=== PATIENT | female | born 1985 | race African-American/Black ===

== ENCOUNTER 2020-09-11 21:40 | Emergency (ER) | payer MEDICAID ==
[~2020-09-11] VITALS: Ht 160 cm; Wt 54.4 kg
--- NOTE | 2020-09-11 22:05 | NUR ---
ED Nurse Note: Recieved pt walk in from home with c/o posterior neck pain at 9/10 since am, pt awakened with pain, possibly slept wrong, denies any injury or fall or other complaints, pt is ambulatory but states can not move neck, pt is guarding site.
[2020-09-11] MEDS ORDERED: IBUPROFEN600 M1 ORAL (22:22)
[2020-09-11] MEDS ORDERED: VALIUM5 MG ORAL (22:22)
--- NOTE | 2020-09-11 22:22 | Emergency Room Report ---
History of Present Illness General Chief Complaint: Neck Pain Source: Patient Present Illness HPI Is a 35-year-old female with no past medical history she presents with complaint of neck pain. Patient states she woke up 1 day and felt stiffness in her neck. Since then she is unable to turn her neck. Worse to the left side. Similar symptom in the past but never like this before. Pain been ongoing for the last 2 to 3 days. Pain is 8 out of 10. No trauma. No fever chills. Not on any medication. No focal deficit. Allergies: Uncoded Allergies: DAIRY (Allergy, Unknown, 09/11/20) COVID-19 Screening Contact w/high risk pt: No Experienced COVID-19 symptoms?: No COVID-19 Testing performed [employer]: No Patient History Past Medical History: see triage record, old chart reviewed Past Surgical History: none Pertinent Family History: none Social History: Denies: smoking Last Menstrual Period: current Now: No Immunizations: other Reviewed Nursing Documentation: PMH: Agreed; PSxH: Agreed Nursing Documentation-PMH Past Medical History: No Stated History Review of Systems Eye: Denies: eye pain, blurred vision ENT: Denies: ear pain, nose congestion, throat swelling Respiratory: Denies: cough, shortness of breath Cardiovascular: Denies: chest pain, palpitations Gastrointestinal: Denies: abdominal pain, diarrhea, nausea, vomiting Musculoskeletal: Reports: joint pain, muscle pain; Denies: back pain Skin: Denies: rash Neurological: Denies: headache, numbness Endocrine: Denies: increased thirst, increased urine Hematologic/Lymphatic: Denies: easy bruising All Other Systems: negative except mentioned in HPI Physical Exam Vital Signs Date Time Temp Pulse Resp B/P (MAP) Pulse Ox O2 Delivery O2 Flow Rate FiO2 09/11/20 21:49 98.4 72 16 116/70 (85) 98 Room Air Vitals normal Sp02 EP Interpretation: reviewed, normal General Appearance: well appearing, no apparent distress, alert Head: normocephalic, atraumatic Eyes: bilateral eye PERRL, bilateral eye EOMI ENT: hearing grossly normal, normal pharynx Neck: no meningismus, tender - Tenderness over the trapezius muscle of her neck, mostly left side. No midline tenderness. Respiratory: chest non-tender, lungs clear, normal breath sounds Cardiovascular #1: regular rate, rhythm, no murmur Gastrointestinal: normal bowel sounds, non tender, no mass, no organomegaly, no bruit, non-distended Musculoskeletal: back normal, normal range of motion, gait/station normal Psychiatric: mood/affect normal Medical Decision Making Diagnostic Impression: Primary Impression: Neck pain ER Course This patient presents with neck pain from spasm. No evidence of trauma. No ca uda equina syndrome, spinal epidural abscess or neoplastic process. Last Vital Signs Date Time Temp Pulse Resp B/P (MAP) Pulse Ox O2 Delivery O2 Flow Rate FiO2 09/11/20 21:49 98.4 72 16 116/70 (85) 98 Room Air Status: improved Disposition: HOME, SELF-CARE Condition: Stable Scripts Ibuprofen* (MOTRIN*) 600 Mg Tablet 600 MG ORAL Q6H PRN for For Pain, #30 TAB 0 Refills Prov: Mikel Wiley MD 09/11/20 Diazepam* (VALIUM*) 5 Mg Tablet 5 MG ORAL TID PRN for spasm, #15 TAB 0 Refills Prov: Mikel Wiley MD 09/11/20 Referrals: NON PHYSICIAN (PCP) Additional Instructions: Warm compress to the area. Follow-up with In 7 days if not better. Return if symptoms worsen. Mikel Wiley MD Sep 11, 2020 22:22
[2020-09-11 22:35] VITALS: BP 116/70
--- NOTE | 2020-09-11 22:35 | NUR ---
ER DISCHARGE NOTE: Patient is cleared to be discharged per ERMD, pt is aox4, on room air, with stable vital signs. pt was given dc and prescription instructions, pt was able to verbalize understanding, pt id band removed without complications. pt is able to ambulate with steady gait. pt took all belongings.
== END 2020-09-11 22:40 | disposition home or self-care (01) ==
LOC: EMR 22:15
DX: M54.2 Cervicalgia (principal)
CPT/HCPCS: 99282